=== PATIENT | male | born 1975 | race American Indian/Alaskan Native ===

== ENCOUNTER 2016-12-31 22:05 | Emergency (ER) | payer OTHER ==
[2016-12-31 23:21] LABS: Basophils % (Auto) 0.6 % (0.0-1.8); Hemoglobin 13.8 gm/dl (11.8-15.2); White Blood Count 9.4 K/mm3 (4.5-11.0)
[2016-12-31 23:23] LABS: Bilirubin,Urine NEG (Negative); Blood,Urine MOD (Negative); Ketones,Urine TR mg/dL (Negative); Leukocyte Esterase,Urine NEG (Negative); Mucus,Urine FEW /HPF; Nitrite,Urine NEG (Negative); Urobilinogen,Urine < 2.0 mg/dL (<2.0)
[2016-12-31 23:42] LABS: BUN/Creatinine Ratio 7.14; Blood Urea Nitrogen 10 mg/dL (9-20); Calcium 8.9 mg/dL (8.4-10.2); Carbon Dioxide 22 mmol/L (22-30); Glucose 462 mg/dL (75-100)
[2016-12-31 23:43] LABS: Anion Gap 23 mmol/L; Chloride 93.8 mmol/L (98-107); Potassium 4.3 mmol/L (3.6-5.0); Sodium 134 mmol/L (137-145)
--- NOTE | 2016-12-31 23:48 | Cat Scan Report ---
FINAL REPORT PROCEDURE: CT head without contrast. TECHNIQUE: Computerized tomography of the head was performed without contrast material. HISTORY: Head injury. COMPARISON: No prior studies are available for comparison. FINDINGS: The ventricles are normal in size. The rush matter and white matter appear normal. There are no mass lesions. There is no intracranial hemorrhage. The calvarium appears intact. The mastoid air cells and visualized paranasal sinuses are clear. There is some orbital fat protruding into the right posterior ethmoid air cells. This could represent an old medial wall blowout fracture or congenital dehiscence of the lamina papyracea. IMPRESSION: Normal study of the brain.
[2016-12-31 23:53] LABS: Hematocrit 42.1 % (35.5-45.6); Mean Corpuscular HGB Conc 33 % (32-34); Mean Corpuscular Hemoglobin 29 pg (28-32); Mean Corpuscular Volume 88 fl (84-94); Platelet Count 312 K/mm3 (140-440); Red Cell Distribution Width 13.3 % (13.2-15.2)
[2017-01-01] MEDS ORDERED: TORADOL IV ONE (01:10)
[2017-01-01] MEDS ORDERED: NACL 0.9% 1000 ML 1,000 ML IV ONE (01:10)
[2017-01-01] MEDS ORDERED: ULTRAM PO ONE (01:10)
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
[2017-01-01 03:43] VITALS: BP 154/86
--- NOTE | 2017-01-01 07:33 | XRay Report ---
LEFT HAND RADIOGRAPHS INDICATION: Left hand pain. COMPARISON: None similar. FINDINGS: AP, lateral and oblique left hand radiographs demonstrate intact bones and joints. Approximately 1 cm focal soft tissue swelling/bump noted dorsally at the wrist. CONCLUSION: No acute left hand bony abnormality with small dorsal focal soft tissue swelling, as described. Please correlate. Thank you for the opportunity to participate in this patient's care.
--- NOTE | 2017-01-01 08:50 | XRay Report ---
RIGHT SHOULDER RADIOGRAPHS INDICATION: Right shoulder pain. COMPARISON: None similar. FINDINGS: Frontal and Y views of the right shoulder, 3 projections demonstrate normal humeral head contour, well positioned against the glenoid. Intact acromioclavicular joint with slight degenerative changes possible. Preserved scapular contour. Normal visualized soft tissues, right ribs and lung. CONCLUSION: No acute right shoulder radiographic abnormality with slight acromioclavicular degenerative changes possible, as described. Thank you for the opportunity to participate in this patient's care.
--- NOTE | 2017-01-01 08:53 | XRay Report ---
Left tibia fibula 2 views: History: Left lower leg pain. Findings: There is intramedullary shahrzad noted with old fracture at the proximal diaphysis of tibia and fibula with ossification of interosseous membrane. There is old fracture noted of mid fibula. Impression: Findings as described. No acute fracture.
== END 2017-01-01 03:10 | disposition home or self-care (01) ==
LOC: ED 22:05
DX: S46.911A Strain of unspecified muscle, fascia and tendon at shoulder and upper arm level, right arm, initial encounter (principal); S56.012A Strain of flexor muscle, fascia and tendon of left thumb at forearm level, initial encounter; S09.90XA Unspecified injury of head, initial encounter; E11.9 Type 2 diabetes mellitus without complications; F17.200 Nicotine dependence, unspecified, uncomplicated; V49.59XA Passenger injured in collision with other motor vehicles in traffic accident, initial encounter; Y92.488 Other paved roadways as the place of occurrence of the external cause; Y93.89 Activity, other specified; Y99.8 Other external cause status
CPT/HCPCS: 36415; 70450; 73030; 73130; 73590; 80048; 81001; 82962; 85025; 96361; 96374; 96375; 99285; J1885; J7030; J1815

== ENCOUNTER 2021-09-17 08:08 | Day surgery (SDC) | payer MEDICAID ==
[~2021-09-17 08:08] MED LIST: SODIUM CHLORIDE 0.9% 1000 ML 1,000 ML IV SCH; ceFAZolin/STERILE WATER 2 GM/20 ML SYRINGE IV NR; fentaNYL 100 MCG/2 ML INJ IV PRN
--- NOTE | 2021-09-17 09:39 | Anesthesia Consultation ---
Anesthesia Consult and Med Hx Date of service: 09/17/21 - Airway Anesthetic Teeth Evaluation: Poor ROM Head & Neck: Adequate Mental/Hyoid Distance: Adequate Mallampati Class: Class III Intubation Access Assessment: Possibly Difficult - Pulmonary Exam CTA: Yes - Pre-Operative Health Status ASA Pre-Surgery Classification: ASA4 Proposed Anesthetic Plan: MAC Nerve Block: supraclavicular - Pulmonary Hx Smoking: Yes (1 PPD) SOB: Yes (chronic CASIANO) Home Oxygen Therapy: No Hx Sleep Apnea: Yes (occasional CPAP) - Cardiovascular System Hx Hypertension: Yes (took carvedilol and hydralazine this morning) Hx Heart Attack/AMI: No Hx Percutaneous Transluminal Coronary Angioplasty (PTCA): No Hx Cardia Arrhythmia: No - Central Nervous System 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 Chronic, stable 3 pillow orthopnea. Mild increased WOB of breathing noted intermittently during exam which patient states has occured since CVA in 2019. Discussed risk of post op resp insufficiency requiring inpatient hospitalization, especially if conversion to GA required during surgery. Patient verbalized understanding.
--- NOTE | 2021-09-17 09:39 | Anesthesia Day of Surgery ---
Anesthesia Day of Surgery - Day of Surgery Patient Examined: Yes Patient H&P Reviewed: Yes Patient is NPO: Yes Beta Blockers: Yes
[2021-09-17 09:41] LABS: Hematocrit 28.4 % (35.5-45.6); Hemoglobin 9.4 gm/dl (11.8-15.2); Mean Corpuscular HGB Conc 33 % (32-34); Mean Corpuscular Volume 84 fl (84-94); Platelet Count 203 K/mm3 (140-440); Red Blood Count 3.36 M/mm3 (3.65-5.03); Red Cell Distribution Width 18.7 % (13.2-15.2)
[2021-09-17] MEDS ORDERED: BUPIVACAINE/PF (0.25%) 2.5 MG/ML 30 ML VIAL INFILTRATI ONE (09:46)
[2021-09-17 09:53] LABS: Calcium 8.6 mg/dL (8.4-10.2)
[2021-09-17] MEDS: MIDAZOLAM 2 MG/2 ML INJ IV SCH ×2 (10:12→10:22)
[2021-09-17] MEDS ORDERED: SODIUM CHLORIDE 0.9% 500 ML 500 ML ONE (10:29)
[2021-09-17] MEDS ORDERED: SODIUM CHLORIDE 0.9% 250ML 250 ML ONE (10:29)
[2021-09-17] MEDS ORDERED: HEPARIN 10,000 UNITS/10 ML VIAL ONE ×2 (10:29→12:14)
[2021-09-17] MEDS ORDERED: rifAMPin 600 MG VIAL ONE (10:30)
[2021-09-17] MEDS ORDERED: HEPARIN 10,000 UNIT/1 ML VIAL IV SCH (11:00)
[2021-09-17] MEDS ORDERED: BUPIVACAINE/PF (0.5%) 5 MG/1 ML 30 ML VIAL INFILTRATI ONE ×4 (11:11→11:25)
[2021-09-17] MEDS ORDERED: SODIUM CHLORIDE 0.9% IRR 1,500 ML BOTTLE IR ONE (11:22)
[2021-09-17] MEDS ORDERED: HEPARIN 10,000 UNITS/10 ML VIAL IR ONE (11:22)
[2021-09-17] MEDS ORDERED: SODIUM CHLORIDE 0.9% 500 ML IVPB IRRIGATION ONE (11:24)
[2021-09-17] MEDS ORDERED: SODIUM CHLORIDE 0.9% 250 ML IVPB IR ONE (11:30)
[2021-09-17] MEDS ORDERED: rifAMPin 600 MG VIAL IV ONE (11:31)
--- NOTE | 2021-09-17 12:42 | Short Stay Summary ---
Short Stay Documentation Date of service: 09/17/21 Narrative H&P: See H&P - History H&P: obtained from office - Allergies and Medications Current Medications: Allergies No Known Allergies Allergy (Verified 09/10/21 16:55) Home Medications Medication Instructions Recorded Confirmed Last Taken Type Bumetanide [Bumex 1 mg tab] 1 mg PO BID 09/10/21 09/10/21 09/16/21 History Folic Acid [Folvite] 1 mg PO QDAY 09/10/21 09/10/21 09/16/21 History Insulin Lispro Protamin/Lispro 15 unit SQ TIDWM 09/10/21 09/10/21 09/16/21 History [Insulin Lispro Mix 75-25 Kwkpn] Rosuvastatin Calcium [Crestor] 40 mg PO DAILY 09/10/21 09/10/21 09/16/21 History Sevelamer Carbonate [Renvela] 800 mg PO TIDWM 09/10/21 09/10/21 09/16/21 History carvediloL [Coreg] 25 mg PO BID 09/10/21 09/10/21 09/17/21 History hydrALAZINE [Apresoline] 25 mg PO Q8HR 09/10/21 09/10/21 09/17/21 History Active Medications Fentanyl (Fentanyl 100 Mcg/2 Ml Inj) 100 mcg IV ONCE PRN PRN Reason: sedation for nerve block Last Admin: 09/17/21 10:12 Dose: 50 mcg Heparin Sodium (Porcine) (Heparin 10,000 Unit/1 Ml Vial) 5,000 unit IV ONCE KIRAN Stop: 09/17/21 23:59 Sodium Chloride (Nacl 0.9% 1000 Ml) 1,000 mls @ 42 mls/hr IV DIRECT KIRAN Stop: 09/17/21 23:59 Last Admin: 09/17/21 09:20 Dose: 42 mls/hr Cefazolin Sodium 3 gm/ Sodium (Chloride) 100 mls @ 100 mls/30 min IV PREOP NR; Protocol Stop: 09/17/21 23:00 Midazolam HCl (Midazolam 2 Mg/2 Ml Inj) 2 mg IV PREOP KIRAN Last Admin: 09/17/21 10:22 Dose: 1 mg - Brief post op/procedure progress note Date of procedure: 09/17/21 Pre-op diagnosis: End-Stage Renal Disease Post-op diagnosis: same Procedure: Creation of Left Brachial Artery to Left Axillary Vein Arteriovenous Graft with 7 mm Bovine Artegraft Anesthesia: MAC, regional Surgeon: ELMER WALTON Estimated blood loss: minimal Pathology: none Condition: stable - Disposition Condition at discharge: Good Short Stay Discharge Plan Activity: other (No heavy lifting with left arm for 2 weeks.) Wound: open to air, keep clean and dry, other (Okay to wash the left arm incisions with soap and water but do not soak in water for 2 weeks.) Follow up with: ELMER WALTON MD [Staff Physician] - 14 Days Prescriptions: HYDROcodone/APAP 7.5-325 [[place] 7.5/325] 1 each PO Q6HR PRN #40 tablet PRN Reason: Pain
--- NOTE | 2021-09-17 12:44 | Operative Report ---
Operative Report Operative Report: Date of procedure: 09/17/2021 Pre-operative diagnosis: End-Stage Renal Disease Post-operative diagnosis: Same Procedure(s): 1. Creation of Left Brachial Artery to Axillary Vein AV Graft with 7 mm Bovine Graft Artergraft Surgeon: Ananth Mehta MD Examination Supervisor: None Anesthesia: Regional/MAC EBL: Minimal Counts: Correct Complications: None Condition: Stable Findings: Successful Creation of Left Arm AV Graft with Palpable Thrill and Palpable Radial Pulse at the Completion of the Case. Specimen: None Indication: The patient is a 45-year-old male with a history of end-stage renal disease who is currently on hemodialysis through a right internal jugular permacath. He is in need of permanent dialysis access and does not have adequate vein for creation of an arteriovenous fistula so he requires creation of an arteriovenous graft. He was given the risk, benefits, and alternative procedures and consented to the procedure. Description of Procedure: Prior to being transported to the operating room the patient had a regional block of the left arm performed. After the block was performed the patient was transported to the operating room and adequately sedated. The patient's left arm was then prepped and draped in normal sterile fashion. A longitudinal incision was made on the medial aspect of the arm just proximal to the antecubital crease and carried down to the brachial artery using sharp dissection. The brachial artery was dissected out circumferentially both proximally and distally and controlled with vessel loops. A second incision was created in longitudinal fashion on the medial aspect of the arm just distal to the axillary crease and carried down to the axillary vein using sharp dissection. Axillary vein was dissected out circumferentially and controlled with a vessel loop. I then used a Josefina-Wick tunneler to tunnel from the brachial artery incision to the axillary vein incision and then pulled an 7 mm bovine through the tunnel. I infused with heparinized saline to ensure that it was not twisted or kinked. I put the brachial artery vessel loops on tension controlling the flow and then created an arteriotomy using an 11 blade and Omer scissors. I beveled the graft and created an end-to-side anastomosis using 6-0 Prolene running fashion. I clamped the graft just proximal to the anastomosis and then released the vessel loops restoring flow in the brachial artery. I placed quick clot in incision to achieve hemostasis. I cut the proximal end of the graft to the appropriate length and beveled the graft in preparation for a venous anastomosis. I controlled the axillary vein a Satinsky clamp and created a venotomy using an 11 blade and Omer scissors. I created an end to side anastomosis using a 6-0 Prolene in running fashion. Prior to completing the anastomosis I flushed the graft to ensure there was no thrombus and then completed the anastamosis. I released all clamps allowing flow into the AV graft which had an excellent thrill. I packed the wound with quick clot to achieve hemostasis. I closed both wounds in 2 layers using 3-0 Vicryl in running fashion in the deep dermal layer and 4-0 Monocryl in running fashion the subcuticular layer. I dressed both wounds with Dermabond. The patient tolerated the procedure well all sponge, needle, and instrument counts were correct. The patient was taken to recovery in stable condition.
--- NOTE | 2021-09-17 15:41 | Post Anesthesia Evaluation ---
- Post Anesthesia Evaluation Patient Participated: Yes Airway Patent: Yes Stable Respiratory Function: Yes Nausea/Vomiting: No Temp > 96.8F: Yes Pain Manageable: Yes Adequeate Hydration: Yes Anesthesia Complications: No
[2021-09-17 16:17] VITALS: BP 138/56
== END 2021-09-17 14:37 | disposition home or self-care (01) ==
LOC: OR 08:08
PROVIDERS: ATTEND Surgery Vascular Surgery
DX: I12.0 Hypertensive chronic kidney disease with stage 5 chronic kidney disease or end stage renal disease (principal); E11.22 Type 2 diabetes mellitus with diabetic chronic kidney disease; N18.6 End stage renal disease; G47.33 Obstructive sleep apnea (adult) (pediatric); E66.9 Obesity, unspecified; E78.5 Hyperlipidemia, unspecified; E11.69 Type 2 diabetes mellitus with other specified complication; Z98.890 Other specified postprocedural states; Z68.41 Body mass index [BMI] 40.0-44.9, adult; Z87.898 Personal history of other specified conditions; Z86.73 Personal history of transient ischemic attack (TIA), and cerebral infarction without residual deficits
CPT/HCPCS: 36415; 36830; 64415; 80048; 82962; 85027; C1768; J0690; J1644; J2250; J3010; J3490; J7030; J7040; J7050; 64450

== ENCOUNTER 2021-10-28 15:34 | Emergency (ER) | payer MEDICAID ==
[2021-10-28] MEDS ORDERED: ACETAMINOPHEN 325 MG TAB PO ONE (18:37)
[2021-10-28 19:22] LABS: Basophils # (Auto) 0.1 K/mm3 (0.0-0.1); Basophils % (Auto) 1.1 % (0.0-1.8); Eosinophils # (Auto) 0.1 K/mm3 (0.0-0.4); Eosinophils % (Auto) 2.2 % (0.0-4.3); Hemoglobin 10.8 gm/dl (11.8-15.2); Lymphocytes # (Auto) 1.2 K/mm3 (1.2-5.4); Lymphocytes % (Auto) 18.6 % (13.4-35.0); Mean Corpuscular HGB Conc 33 % (32-34); Mean Corpuscular Volume 94 fl (84-94); Monocytes # (Auto) 0.8 K/mm3 (0.0-0.8); Monocytes % (Auto) 11.8 % (0.0-7.3); Platelet Count 207 K/mm3 (140-440); Red Blood Count 3.53 M/mm3 (3.65-5.03)
[2021-10-28 19:40] LABS: Albumin 3.8 g/dL (3.9-5); Calcium 8.9 mg/dL (8.4-10.2)
[2021-10-28 19:50] LABS: Red Cell Distribution Width 21.3 % (13.2-15.2)
[2021-10-28] MEDS ORDERED: fentaNYL 100 MCG/2 ML INJ IV ONE (21:45)
--- NOTE | 2021-10-28 21:52 | Emergency Department Report ---
Upper Extremity - HPI Chief Complaint: Extremity Problem,Nontraumatic Stated Complaint: LT ARM PAIN Time Seen by Provider: 10/28/21 21:37 Upper Extremity: Left Arm (pain s/p left fistula revision last Wednesday ) Occurred When: >5 Days Mechanism: Other (post surgical ) Symptoms: Yes Pain with Movement, Yes Swelling, No Deformity, No Limited Range of Movement, No Numbness, No Weakness, No Bruising/Ecchymosis, No Laceration or Abrasion ED Review of Systems ROS: Stated complaint: LT ARM PAIN Other details as noted in HPI Comment: All other systems reviewed and negative Musculoskeletal: myalgia, other (left arm dialysis fistula) ED Past Medical Hx - Past Medical History Hx Hypertension: Yes Hx Heart Attack/AMI: No Hx Congestive Heart Failure: No Hx Diabetes: Yes Hx GERD: No Hx Liver Disease: No Hx Renal Disease: Yes (TTS dialysis) Hx Sickle Cell Disease: No Hx Asthma: No Hx COPD: No Hx Tuberculosis: No Hx HIV: No Additional medical history: Drug use and uses crack cocaine - Surgical History Additional Surgical History: Left tib-fib fracture surgery, dialysis catheter in right upper chest Fistula in LLE - Social History Smoking Status: Never Smoker Substance Use Type: None - Medications Home Medications: Home Medications Medication Instructions Recorded Confirmed Last Taken Type Bumetanide [Bumex 1 mg tab] 1 mg PO BID 09/10/21 10/22/21 09/16/21 History Folic Acid [Folvite] 1 mg PO QDAY 09/10/21 10/22/21 09/16/21 History Insulin Lispro Protamin/Lispro 15 unit SQ TIDWM 09/10/21 10/22/21 09/16/21 History [Insulin Lispro Mix 75-25 Kwkpn] Rosuvastatin Calcium [Crestor] 40 mg PO DAILY 09/10/21 10/22/21 09/16/21 History Sevelamer Carbonate [Renvela] 800 mg PO TIDWM 09/10/21 10/22/21 09/16/21 History carvediloL [Coreg] 25 mg PO BID 09/10/21 10/22/21 09/17/21 History hydrALAZINE [Apresoline TAB] 25 mg PO Q8HR 09/10/21 10/22/21 09/17/21 History Upper Extremity Exam - Exam General: Vital signs noted. No distress. Alert and acting appropriately. Head and Torso: No HEENT Abnormality, No Neck Tenderness, No Chest/Lungs Abnormality, No Abdominal Tenderness, No Back Tenderness Shoulder Exam: Yes Normal Range of Motion in Shoulder, No Shoulder Tenderness, No Clavicle Tenderness, No Shoulder Deformity, No AC Joint Tenderness Arm Exam: Yes Arm/Humerus Tenderness (left arm swelling and dialysis fistula ) Elbow: Yes Normal Range of Motion in Elbow, No Elbow Tenderness, No Elbow Deformity Forearm: No Forearm Tenderness, No Forearm Deformity, No Pain with Pronation, No Pain with Supination Wrist: Yes Normal ROM in Wrist, No Wrist Tenderness, No Wrist Deformity, No Snuffbox Tenderness, No Pain with Axial Thumb Compression Hand: Yes Normal ROM in Digit(s), No Hand Tenderness, No Hand Deformity, No Digit Tenderness, No Digit(s) Deformity, No Tendon Dysfunction CMS Exam: Yes Normal Distal Pulses, Yes Normal Capillary Refill, Yes Normal Distal Sensation, No Broken Skin ED Course Vital Signs 10/28/21 10/28/21 10/28/21 16:45 21:23 21:30 Temperature 97.8 F 97.9 F Pulse Rate 69 62 66 Respiratory 26 H 13 25 H Rate Blood Pressure 176/85 168/87 Blood Pressure 168/87 [Right] O2 Sat by Pulse 98 90 Oximetry - Reevaluation(s) Reevaluation #1: 10/29/21 05:24 US doppler is not available tonight -- and did not want this patient to miss his appoint for his fistula revision so will go ahead and discharge from ED so he will be able to go straight to his appointment with his [facility]. ED Medical Decision Making - Lab Data Result diagrams: 10/28/21 18:39 10/28/21 18:39 - Medical Decision Making here with post dialysis fistula swelling and pain-- with concern for likely DVT-- so will give pain medication and order routine labs and doppler -- Critical care attestation.: If time is entered above; I have spent that time in minutes in the direct care of this critically ill patient, excluding procedure time. ED Disposition Clinical Impression: Left upper arm pain Dialysis AV fistula malfunction Qualifiers: Encounter type: initial encounter Qualified Code(s): T82.590A - Other mechanical complication of surgically created arteriovenous fistula, initial encounter Disposition: 01 HOME / SELF CARE / HOMELESS Is pt being admited?: No Does the pt Need Aspirin: No Condition: Stable Instructions: Dialysis Fistulogram, Dialysis Fistulogram, Care After, Dialysis Vascular Access Malfunction Additional Instructions: It is very important that you keep your appointment with your nephrology for fistula revision this morning Call or return to emergency if your symptoms worsen. Time of Disposition: 05:27
[2021-10-29 06:37] VITALS: BP 163/73
--- NOTE | 2021-10-30 18:59 | Electrocardiograph Report ---
[facility] Test Date: 2021-10-28 Test Time: 16:54:31 Pat Name: ELVIN CERRATO Department: Room: Gender: M Insert Cutter: MANNY : 1975 Requested By: SONIA SMART Order Number: [id number] Reading MD: Jeffrey Felipe Measurements Intervals [place] Rate: 68 P: 59 KS: 138 QRS: 44 QRSD: 82 T: 78 QT: 410 QTc: 436 Interpretive Statements Sinus rhythm Probable left atrial enlargement No previous ECG available for comparison Electronically Signed On 10-30-2021 18:58:40 EDT by Jeffrey Felipe
== END 2021-10-29 06:37 | disposition home or self-care (01) ==
LOC: ED 15:34
DX: T82.590A Other mechanical complication of surgically created arteriovenous fistula, initial encounter (principal); M79.622 Pain in left upper arm; I10 Essential (primary) hypertension; E11.9 Type 2 diabetes mellitus without complications; Z98.890 Other specified postprocedural states
CPT/HCPCS: 36415; 80053; 82962; 85025; 93005; 96374; 99283; J3010

== ENCOUNTER 2021-10-29 06:37 | Day surgery (SDC) | payer MEDICAID ==
[~2021-10-29 06:37] MED LIST changes: +MIDAZOLAM 2 MG/2 ML INJ IV SCH
--- NOTE | 2021-10-29 07:38 | Anesthesia Consultation ---
Anesthesia Consult and Med Hx Date of service: 10/29/21 - Airway Anesthetic Teeth Evaluation: Poor ROM Head & Neck: Adequate Mental/Hyoid Distance: Adequate Mallampati Class: Class III Intubation Access Assessment: Possibly Difficult - Pre-Operative Health Status ASA Pre-Surgery Classification: ASA4 Proposed Anesthetic Plan: General - Pulmonary Hx Smoking: Yes (1/2PPD) SOB: Yes (chronic CASIANO) Hx Sleep Apnea: Yes (occasional CPAP) - Cardiovascular System Hx Hypertension: Yes Hx Heart Attack/AMI: No Hx Percutaneous Transluminal Coronary Angioplasty (PTCA): No Hx Cardia Arrhythmia: No - Central Nervous System 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
--- NOTE | 2021-10-29 07:40 | Anesthesia Day of Surgery ---
Anesthesia Day of Surgery - Day of Surgery Patient Examined: Yes Patient H&P Reviewed: Yes Patient is NPO: Yes
[2021-10-29] MEDS ORDERED: ceFAZolin/Water 2 GM/20 ML 2 GM/20 ML SYRINGE IV ONE (10:25)
[2021-10-29 10:49] LABS: Hematocrit 33.4 % (35.5-45.6); Hemoglobin 10.4 gm/dl (11.8-15.2); Mean Corpuscular HGB Conc 31 % (32-34); Mean Corpuscular Volume 94 fl (84-94); Platelet Count 208 K/mm3 (140-440); Red Blood Count 3.54 M/mm3 (3.65-5.03)
[2021-10-29 10:56] LABS: Red Cell Distribution Width 21.5 % (13.2-15.2)
[2021-10-29] MEDS ORDERED: carvediloL 25 MG TAB PO SCH (11:00)
[2021-10-29] MEDS ORDERED: hydrALAZINE 25 MG TAB PO SCH (11:00)
[2021-10-29 11:38] LABS: Calcium 8.6 mg/dL (8.4-10.2)
[2021-10-29] MEDS ORDERED: BUPIVACAINE/PF (0.5%) 5 MG/1 ML 30 ML VIAL INFILTRATI ONE ×3 (14:06→16:17)
[2021-10-29] MEDS ORDERED: LIDOCAINE (1%) 10 MG/1 ML VIAL 20 ML MDV ONE (14:06)
[2021-10-29] MEDS ORDERED: HEPARIN 10,000 UNITS/10 ML VIAL ONE (14:34)
[2021-10-29] MEDS ORDERED: SODIUM CHLORIDE 0.9% 500 ML 500 ML ONE (14:34)
[2021-10-29] MEDS ORDERED: MIDAZOLAM 2 MG/2 ML INJ ONE (15:06)
[2021-10-29] MEDS ORDERED: rifAMPin 600 MG VIAL ONE (15:17)
[2021-10-29] MEDS ORDERED: HEPARIN 10,000 UNITS/10 ML VIAL IR ONE (15:38)
[2021-10-29] MEDS ORDERED: SODIUM CHLORIDE 0.9% 500 ML IVPB IRRIGATION ONE (15:39)
[2021-10-29] MEDS ORDERED: SODIUM CHLORIDE 0.9% 250 ML IVPB IR ONE (15:39)
[2021-10-29] MEDS ORDERED: rifAMPin 600 MG VIAL IV ONE (15:40)
[2021-10-29] MEDS ORDERED: SODIUM CHLORIDE 0.9% IRR 1,500 ML BOTTLE IR ONE (15:40)
[2021-10-29] MEDS ORDERED: HEPARIN 10,000 UNITS/10 ML VIAL IV ONE (17:17)
[2021-10-29] MEDS ORDERED: HEPARIN 10,000 UNIT/1 ML VIAL ONE (17:18)
--- NOTE | 2021-10-29 17:20 | Short Stay Summary ---
Short Stay Documentation Date of service: 10/29/21 Narrative H&P: See H&P - History H&P: obtained from office - Allergies and Medications Current Medications: Allergies No Known Allergies Allergy (Verified 10/22/21 11:21) Home Medications Medication Instructions Recorded Confirmed Last Taken Type Bumetanide [Bumex 1 mg tab] 1 mg PO BID 09/10/21 10/22/21 09/16/21 History Folic Acid [Folvite] 1 mg PO QDAY 09/10/21 10/22/21 09/16/21 History Insulin Lispro Protamin/Lispro 15 unit SQ TIDWM 09/10/21 10/22/21 09/16/21 History [Insulin Lispro Mix 75-25 Kwkpn] Rosuvastatin Calcium [Crestor] 40 mg PO DAILY 09/10/21 10/22/21 09/16/21 History Sevelamer Carbonate [Renvela] 800 mg PO TIDWM 09/10/21 10/22/21 09/16/21 History carvediloL [Coreg] 25 mg PO BID 09/10/21 10/22/21 09/17/21 History hydrALAZINE [Apresoline TAB] 25 mg PO Q8HR 09/10/21 10/22/21 09/17/21 History Active Medications Carvedilol (Carvedilol 25 Mg Tab) 25 mg PO PREOP KIRAN Last Admin: 10/29/21 10:39 Dose: 25 mg Fentanyl (Fentanyl 100 Mcg/2 Ml Inj) 100 mcg IV ONCE PRN PRN Reason: sedation for nerve block Last Admin: 10/29/21 14:16 Dose: 100 mcg Hydralazine HCl (Hydralazine 25 Mg Tab) 25 mg PO PREOP KIRAN Last Admin: 10/29/21 10:39 Dose: 25 mg Sodium Chloride (Nacl 0.9% 1000 Ml) 1,000 mls @ 42 mls/hr IV DIRECT KIRAN Stop: 10/29/21 23:59 Last Admin: 10/29/21 10:00 Dose: 42 mls/hr Cefazolin Sodium 3 gm/ Sodium (Chloride) 100 mls @ 100 mls/30 min IV PREOP KIRAN; Protocol Midazolam HCl (Midazolam 2 Mg/2 Ml Inj) 2 mg IV PREOP KIRAN Last Admin: 10/29/21 14:16 Dose: 2 mg - Brief post op/procedure progress note Date of procedure: 10/29/21 Pre-op diagnosis: Complications of Dialysis Access Post-op diagnosis: same Procedure: Revision of Left Arm Arteriovenous Fistula with Proximalization of the Inflow Using 7 mm Bovine Artegraft Anesthesia: MAC, regional Surgeon: ELMER WALTON Estimated blood loss: 50-100ml Pathology: none Condition: stable - Disposition Condition at discharge: Good Disposition: 01 HOME / SELF CARE / HOMELESS Short Stay Discharge Plan Activity: other (No heavy lifting left arm for 2 weeks.) Wound: open to air, remove dressing (48-hour), other (Once the dressing has been removed is okay to wash the left arm incisions with soap and water but do not soak in water for 2 weeks.) Follow up with: ELMER WALTON MD [Staff Physician] - 14 Days Prescriptions: Oxycodone HCl/Acetaminophen [Percocet 10/325 mg] 1 each PO Q6HR PRN #30 tab PRN Reason: Pain
[2021-10-29] MEDS ORDERED: HEPARIN 10,000 UNIT/1 ML VIAL IV PRN (17:21)
--- NOTE | 2021-10-29 17:27 | Operative Report ---
Operative Report Operative Report: Date of Procedure: 10/29/2021 Pre-operative Diagnosis: Complications of Dialysis Access Post-operative Diagnosis: Same Procedure(s): 1. Revision of Left Arm Arteriovenous Fistula with Proximalization of the Inflow Using 7 mm Bovine Artegraft Surgeon: Ananth Mehta M.D. Client Support Administrator: None Anesthesia: Regional/MAC EBL: 75 mL Counts: Correct Complications: None Condition: Stable Findings: Palpable thrill in left arm arteriovenous graft at the completion of the case. Specimen: None Indication: The patient is a 46-year-old male with a history of end-stage renal disease who is currently on hemodialysis through a right internal jugular permacath. She presents with complaints of pain and numbness in his left hand when on dialysis that has some improvement after angioplasty of his brachial artery however had only lasted a short period time. He is in need of revision of his graft with proximal disease and of the inflow. He has been given the risk, benefits, and alternative procedures and consented to the procedure. Description of Procedure: Prior to being transported to the operating room the patient had a regional block performed of his left lower extremity. The patient was then transported to the operating room and laid in supine position. He was given sedation to make an comfortable and then his left arm was prepped and draped in normal sterile fashion. A longitudinal incision was then created on the medial aspect of his arm, through his previous arterial incision and carried down to the arterial anastomosis using sharp dissection. The arterial inflow of his graft was dissected circumferentially controlled the vessel. I then made a longitudinal incision on the medial aspect of his arm and used sharp dissection to carry this down to the axillary artery and dissected artery circumferentially. I then used a Josefina-Wick tunneler to tunnel a 7 mm bovine Artegraft from the axillary artery incision to the brachial artery incision and then systemically heparinized patient with 3000 units of heparin IV. I clamped the axillary artery and then made an arteriotomy using an 11 blade and Omer's. I created an end-to-side anastomosis using a 6-0 Prolene running fashion. I then clamped the graft just distal to the anastomosis and released the clamps on axillary artery to ensure that there was adequate hemostasis. I then clamped the indwelling graft, just distal to the arterial anastomosis, as well as clamping it near the venous anastomosis and transected the graft. I oversewed the graft near the arterial anastomosis in 2 layers using a 4-0 Prolene in 2 layer fashion to close the brachial artery arteriotomy. I then remove the clamp to ensure there was hemostasis. I then beveled the venous outflow of the graft and cut the new graft to length as well as beveling that hand. I then sewed those 2 grafts together in end-to-end fashion using two 5-0 Prolene's in running fashion. Prior to completing the anastomosis I flashed the venous outflow as well as the arterial inflow and flushed with heparinized saline. I then completed the anastomosis and removed the clamps allowing flow into the graft which had a palpable thrill. Hemostasis within the wounds were then achieved with a combination of manual pressure and Surgicel. Once hemostasis was achieved I closed the wounds in 2 layers using a 3-0 Vicryl running fashion in the deep dermal layers and kuldeep to reapproximate the skin. I then dressed the wounds with Telfa and Tegaderm. The patient tolerated the procedure well. All sponge, needle, and instrument counts were correct. The patient was taken to the recovery area in stable condition.
[2021-10-29 18:59] VITALS: BP 168/76
== END 2021-10-29 18:10 | disposition home or self-care (01) ==
LOC: OR 06:37
PROVIDERS: ATTEND Surgery Vascular Surgery
DX: T82.898A Other specified complication of vascular prosthetic devices, implants and grafts, initial encounter (principal); I12.0 Hypertensive chronic kidney disease with stage 5 chronic kidney disease or end stage renal disease; E11.22 Type 2 diabetes mellitus with diabetic chronic kidney disease; N18.6 End stage renal disease; E11.69 Type 2 diabetes mellitus with other specified complication; E78.5 Hyperlipidemia, unspecified; G47.33 Obstructive sleep apnea (adult) (pediatric); Z98.890 Other specified postprocedural states; Z91.81 History of falling; Z79.899 Other long term (current) drug therapy; Z86.73 Personal history of transient ischemic attack (TIA), and cerebral infarction without residual deficits; Y82.8 Other medical devices associated with adverse incidents; Y92.89 Other specified places as the place of occurrence of the external cause
CPT/HCPCS: 36415; 36832; 64415; 80048; 82962; 85027; 86850; 86900; 86901; C1757; C1768; J0690; J1644; J2250; J3010; J3490; J7030; J7040; J7050; 64450